=== PATIENT | female | born 1975 | race Caucasian/White ===

== ENCOUNTER 2017-03-28 20:16 | Observation (INO) | payer OTHER ==
[2017-03-28] MEDS ORDERED: Pepcid 20 MG VIAL IV ONE ×2 (20:26→20:29)
[2017-03-28] MEDS ORDERED: BENADRYL 50 MG/ML IV ONE (20:26)
[2017-03-28] MEDS ORDERED: solu-MEDROL 125 MG IV ONE (20:26)
[2017-03-28] MEDS ORDERED: Sodium Chloride 0.9% 1000 ML 1,000 ML ONE (20:29)
[2017-03-28] MEDS ORDERED: BENADRYL 50 MG/ML ONE (20:29)
[2017-03-28] MEDS ORDERED: solu-MEDROL 125 MG ONE (20:29)
[2017-03-28] MEDS ORDERED: Sodium Chloride 0.9% 1000 ML 1,000 ML IV SCH (20:30)
--- NOTE | 2017-03-28 20:33 | ERPHSYRPT ---
- History of Present Illness Time Seen by Provider: 03/28/17 20:22 Source: patient Patient Subjective Stated Complaint: PT REPORTS EATING A VICTOR MANUEL ET POTATO EDI 30 MIN AGO-STATES HER TONGUE BEGAN SWELLING-STATES SHE FEELS LIKE SHE IS HAVING TROUBLE BREATHING Triage Nursing Assessment: PT PINK WARM ET [id number] NONLABORED-SPEAKING IN COMPLETE SENTENCES-PT ANXIOUS UPON ARRIVAL-DENIES PAIN-DENIES ITCH Physician History: CC: tongue swelling Hx: 41 y/o patient of Dr Josue. 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 No V/D. No skin rash. No itching. She took her lisinopriol 2 hours prior. She has hx of HTN and DM. No trouble breathing. She had prior allergic reaction to ceclor. Has had no bites, stings, or other known exposures. She states not as had prior BTL. Symptoms moderate. No focal weakness, numbness, or tingling. No chest pain. Allergies/Adverse Reactions: cefaclor [From Ceclor] Allergy (Verified 03/28/17 20:24) Home Medications: Albuterol 2.5 mg/3 ml Neb [Proventil 2.5 mg/3 ml Neb] 2 puffs IH QID PRN 12/15/15 [History] Alprazolam 1 mg [Xanax 1 mg] 2 mg PO TID 12/15/15 [History] Budesonide/Formoterol Fumarate [Symbicort 160-4.5 Mcg Inhaler] 1 inh IH BID [History] Lisinopril 10 mg [Zestril 10 MG] 40 mg PO DAILY 12/15/15 [History] Metformin HCl 500 mg [Glucophage 500 MG] 500 mg PO BID 12/15/15 [History] Hx Tetanus, Diphtheria Vaccination/Date Given: No Hx Influenza Vaccination/Date Given: Yes Hx Pneumococcal Vaccination/Date Given: Yes Immunizations Up to Date: Yes - Review of Systems Constitutional: No Symptoms Eyes: No Symptoms Ears, Nose, & Throat: Mouth Swelling (tongue) Respiratory: No Cough, No Dyspnea Cardiac: No Chest Pain, No Palpitations, No Syncope Abdominal/Gastrointestinal: No Abdominal Pain, No Nausea, No Vomiting, No Diarrhea Skin: No Pruritis, No Rash, No Skin Lesions Neurological: No Focal Weakness, No Headache, No Parasthesia Psychological: Anxiety (worried about stroke) All Other Systems: Reviewed and Negative - Past Medical History Pertinent Past Medical History: Yes Neurological History: No Pertinent History ENT History: No Pertinent History Cardiac History: Hypertension Respiratory History: Bronchitis, COPD Endocrine Medical History: Diabetes Type II Musculoskeletal History: No Pertinent History GI Medical History: No Pertinent History History: No Pertinent History Psycho-Social History: Anxiety Female Reproductive Disorders: No Pertinent History - Past Surgical History Past Surgical History: Yes Neuro Surgical History: No Pertinent History Cardiac: No Pertinent History Respiratory: No Pertinent History Gastrointestinal: Cholecystectomy, Hernia Repair Genitourinary: No Pertinent History Musculoskeletal: No Pertinent History Female Surgical History: Tubal Ligation - Social History Smoking Status: Current every day smoker How long have you smoked: YRS Exposure to second hand smoke: Yes Drug Use: none Patient Lives Alone: No - Nursing Vital Signs Nursing Vital Signs: Initial Vital Signs Temperature 98.5 F Temperature Source Oral Pulse Rate 119 Respiratory Rate 18 Blood Pressure [Right Arm] 112/74 Pain Intensity 0 - Physical Exam General Appearance: alert Eye Exam: PERRL/EOMI Ears, Nose, Throat Exam: moist mucous membranes, other (tongue has mild to moderate diffuse angioedema. Airway intact. Mildly hoarse voice.) Neck Exam: normal inspection, non-tender, supple Respiratory Exam: normal breath sounds, lungs clear, No respiratory distress Cardiovascular Exam: regular rate/rhythm Gastrointestinal/Abdomen Exam: soft, No tenderness, No distention Back Exam: normal inspection Extremity Exam: normal inspection, normal range of motion Neurologic Exam: alert, oriented x 3, cooperative, glue maker II-XII nml as tested, sensation nml, No motor deficits Skin Exam: warm, dry, No rash SpO2 Interpretation: normal SpO2: 100 Oxygen Delivery: Room Air - Course Nursing assessment & vital signs reviewed: Yes EKG Interpreted by Me: RATE ([id number]), Sinus Rhythm, NORMAL AXIS, NORMAL INTERVALS ( QTc 462), NORMAL QRS, NORMAL ST-T Ordered Tests: Active Orders 24 hr Category Date Time Status EKG-ER Only STAT Care 03/28/17 20:26 Active IV Insertion STAT Care 03/28/17 20:26 Active NPO (ED) STAT Care 03/28/17 20:26 Active CBC W DIFF Stat Lab 03/28/17 20:35 Completed CMP Stat Lab 03/28/17 20:35 Completed HCG QUALITATIVE,SERUM Stat Lab 03/28/17 20:35 Completed Medication Summary Generic Name Dose Route Start Last Admin Trade Name Ginger PRN Reason Stop Dose Admin Sodium Chloride 1,000 mls @ 50 mls/hr 03/28/17 20:30 03/28/17 20:31 Sodium Chloride 0.9% 1000 Ml IV 04/27/17 20:29 50 mls/hr .Q20H ANN MARIE Administration Discontinued Medications Generic Name Dose Route Start Last Admin Trade Name Ginger PRN Reason Stop Dose Admin Diphenhydramine HCl 50 mg 03/28/17 20:26 03/28/17 20:31 Benadryl 50 Mg/Ml IV 03/28/17 20:27 50 mg STAT ONE Administration Diphenhydramine HCl Confirm 03/28/17 20:29 Benadryl 50 Mg/Ml Administered 03/28/17 20:30 Dose 50 mg .ROUTE .STK-MED ONE Famotidine 20 mg 03/28/17 20:26 03/28/17 20:31 Pepcid 20 Mg Vial IV 03/28/17 20:27 20 mg STAT ONE Administration Famotidine Confirm 03/28/17 20:29 Pepcid 20 Mg Vial Administered 03/28/17 20:30 Dose 20 mg IV .STK-MED ONE Methylprednisolone Sodium Succinate 125 mg 03/28/17 20:26 03/28/17 20:31 Solu-Medrol 125 Mg IV 03/28/17 20:27 125 mg STAT ONE Administration Methylprednisolone Sodium Succinate Confirm 03/28/17 20:29 Solu-Medrol 125 Mg Administered 03/28/17 20:30 Dose 125 mg .ROUTE .STK-MED ONE Lab/Rad Data: Laboratory Result Diagrams 03/28/17 20:35 03/28/17 20:35 Laboratory Results 03/28/17 03/28/17 03/28/17 Range/Units 20:35 20:35 20:35 WBC 6.6 (4.0-10.5) K/mm3 RBC 4.27 (4.1-5.4) M/mm3 Hgb 12.9 (12.0-16.0) gm/dl Hct 39.5 (35-47) % MCV 92.5 (78-100) fl MCH 30.2 (26-32) pg MCHC 32.7 (32-36) g/dl RDW 13.1 (11.5-14.0) % Plt Count 368 (150-450) K/mm3 MPV 9.3 (6-9.5) fl Gran % 62.2 (36.0-66.0) % Lymphocytes % 25.8 (24.0-44.0) % Monocytes % 8.2 (0.0-12.0) % Eosinophils % 2.9 (0.00-5.0) % Basophils % 0.9 (0.0-0.4) % Basophils # 0.06 (0-0.4) Sodium 139 (136-145) mEq/L Potassium 4.4 (3.5-5.1) mEq/L Chloride 103 (98-107) mEq/L Carbon Dioxide 25.3 (21-32) mEq/L Anion Gap 14.9 (5-15) MEQ/L BUN 30 H (9-20) mg/dL Creatinine 2.00 H (0.55-1.30) mg/dl Estimated GFR 29 ML/MIN Glucose 139 H (70-110) MG/DL Calcium 8.8 (8.5-10.1) mg/dL Total Bilirubin 0.30 (0.2-1.0) mg/dL AST 78 H (15-37) U/L ALT 113 H (12-78) U/L Alkaline Phosphatase 108 (46-116) U/L Serum Total Protein 7.4 (6.4-8.2) gm/dL Albumin 3.4 (3.4-5.0) g/dL Serum , Qual NEGATIVE (Negative) - Progress Progress Note: 03/28/17 20:33 Likely MATTHEW inhibitor induced angioedema as no other known exposures. 03/28/17 21:31 Angioedema appears to be improving. Airway intact. Still some tongue swelling. She takes metformin, diovan, lisinopril. She has new renal failure. Called Dr Miguel Josue and will place in observation. 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
[2017-03-28 20:38] LABS: BASOPHIL % 0.9 % (0.0-0.4); Eosinophil % 2.9 % (0.00-5.0); Granulocytes % 62.2 % (36.0-66.0); Lymphocytes % 25.8 % (24.0-44.0); Mean Cell Volume 92.5 fl (78-100); Mean Corpuscular Hemoglobin 30.2 pg (26-32); Mean Platelet Volume 9.3 fl (6-9.5); Monocytes % 8.2 % (0.0-12.0); Platelet Count 368 K/mm3 (150-450); Red Blood Count 4.27 M/mm3 (4.1-5.4); Red Cell Distribution Width 13.1 % (11.5-14.0); White Blood Count 6.6 K/mm3 (4.0-10.5)
[2017-03-28 20:53] LABS: ALBUMIN 3.4 g/dL (3.4-5.0); ANION GAP 14.9 MEQ/L (5-15); BILIRUBIN,TOTAL 0.3 mg/dL (0.2-1.0); Carbon Dioxide 25.3 mEq/L (21-32); Potassium 4.4 mEq/L (3.5-5.1); Total Protein 7.4 gm/dL (6.4-8.2)
[2017-03-28] MEDS ORDERED: NovoLOG Insulin SQ PRN (22:12)
[2017-03-28] MEDS ORDERED: Pepcid 20 MG VIAL IV SCH (22:12)
[2017-03-28] MEDS ORDERED: Nicoderm CQ 21 MG TOP SCH (22:30)
[2017-03-28] MEDS: Sodium Chloride 0.9% 1000 ML 1,000 ML IV SCH (22:56)
[2017-03-28] MEDS ORDERED: XANAX 1 MG PO SCH (23:21)
[2017-03-28] MEDS: solu-MEDROL 125 MG IV SCH (23:35)
[2017-03-28] MEDS: BENADRYL 50 MG/ML IV SCH (23:35)
[2017-03-29] MEDS: solu-MEDROL 125 MG IV SCH (02:38)
[2017-03-29] MEDS: BENADRYL 50 MG/ML IV SCH (02:39)
[2017-03-29 05:58] LABS: ANION GAP 12.8 MEQ/L (5-15); Carbon Dioxide 24.5 mEq/L (21-32); Potassium 4.7 mEq/L (3.5-5.1)
[2017-03-29 07:04] VITALS: BP 114/61; PULSE 68
[2017-03-29 07:10] VITALS: O2SAT 95
[2017-03-29] MEDS: Sodium Chloride 0.9% 1000 ML 1,000 ML IV SCH (07:12)
--- NOTE | 2017-03-29 08:22 | PCM.HP ---
History of Present Illness - Chief Complaint Chief Complaint: samir inhibitor induced angioedema Date: 03/29/17 History of Present Illness: is a 41 year old female. with diabetes she has this well controlled her last A1c was 5.4% but that was 1 year ago and she is only on metformin 500 bid she has lost a lot of weight. She had sudden swelling of her tongue and hoarseness in her voice yesterday. She denies any known inciting event she did not start any new medications, supplements, or foods recently. She believes she was drinking her normal amount yesterday with no change recently in this. This am she is feeling much better. She has no longer any swelling and her voice is improved. she is urinating well. She has been on the current blood pressure medications for some time she states. She was unsure when it was last changed. On chart review it appears she saw Cristal Fraga back in 02/2016 and had the losartan hctz started then but it doesn't appear she had any labs since that was started in addition to the lisinopril. Medications & Allergies Home Medications: Home Medication List Albuterol 2.5 mg/3 ml Neb [Proventil 2.5 mg/3 ml Neb] 2 puffs IH QID PRN 12/15/15 [History Confirmed 03/28/17] Alprazolam 1 mg [Xanax 1 mg] 2 mg PO TID 12/15/15 [History Confirmed 03/28] Budesonide/Formoterol Fumarate [Symbicort 160-4.5 Mcg Inhaler] 1 inh IH BID [History Confirmed 03/28/17] Alprazolam 1 mg [Xanax 1 mg] 2 mg PO TID #0 tablet 03/29/17 [Rx] Amlodipine Besylate 10 mg [Norvasc 10 MG] 10 mg PO DAILY #30 tablet 03/29/17 [Rx ] Allergies/Adverse Reactions: Allergies Allergy/AdvReac Type Severity Reaction Status Date / Time cefaclor [From [facility]] Allergy Verified 03/28/17 20:24 - Past Medical History Past Medical History: Yes Neurological History: No Pertinent History ENT History: No Pertinent History Cardiac History: Hypertension Respiratory History: Bronchitis, COPD Endocrine Medical History: Diabetes Type II Musculoskelatal History: No Pertinent History GI Medical History: No Pertinent History History: No Pertinent History Pyscho-Social History: Anxiety Reproductive Disorders: No Pertinent History - Female History Are you now?: No - Past Surgical History Past Surgical History: Yes Neuro Surgical History: No Pertinent History Cardiac History: No Pertinent History Respiratory Surgery: No Pertinent History GI Surgical History: Cholecystectomy, Hernia Repair Genitourinary Surgical Hx: No Pertinent History Musculskeletal Surgical Hx: No Pertinent History Female Surgical History: Tubal Ligation - Social History Smoking Status: Current some day smoker How long have you smoked: YRS Exposure to second hand smoke: Yes Alcohol: Rarely Drug Use: none - Physical Exam Vital Signs: Vital Signs - 24 hr Temp Pulse Resp BP Pulse Ox 03/29/17 07:10 95 03/29/17 07:03 98.4 F 68 18 114/61 94 L 03/29/17 04:00 97.8 F 67 16 104/62 97 03/28/17 23:08 97 03/28/17 22:28 98.5 F 119 H 18 112/74 100 03/28/17 21:32 100 03/28/17 21:21 119 H 18 112/74 98 03/28/17 20:21 98.5 F 101 H 22 124/68 100 General Appearance: no apparent distress, alert Neurologic Exam: alert, oriented x 3, cooperative, normal mood/affect, nml cerebellar function, nml station & gait, sensation nml, No motor deficits Eye Exam: PERRL/EOMI, eyes nml inspection Ears, Nose, Throat Exam: normal ENT inspection, TMs normal, pharynx normal, moist mucous membranes Neck Exam: normal inspection, non-tender, supple, full range of motion Respiratory Exam: normal breath sounds, lungs clear, No respiratory distress Cardiovascular Exam: regular rate/rhythm, normal heart sounds, normal peripheral pulses Gastrointestinal/Abdomen Exam: soft, normal bowel sounds, No tenderness, No mass Back Exam: normal inspection, normal range of motion, No CVA tenderness, No vertebral tenderness Extremity Exam: normal inspection, normal range of motion, pelvis stable Skin Exam: normal color, warm, dry, No rash Lymphatic Exam: No adenopathy Results - Labs Lab/Micro Results: Accuchecks Date 03/29/17 Time 07:30 Accucheck Value: 193 Lab Results-Last 24 Hours 03/29/17 Range/Units 05:15 Sodium 138 (136-145) mEq/L Potassium 4.7 (3.5-5.1) mEq/L Chloride 105 (98-107) mEq/L Carbon Dioxide 24.5 (21-32) mEq/L Anion Gap 12.8 (5-15) MEQ/L BUN 25 H (9-20) mg/dL Creatinine 1.71 H (0.55-1.30) mg/dl Estimated GFR 35 ML/MIN Glucose 193 H (70-110) MG/DL Calcium 8.5 (8.5-10.1) mg/dL Accuchecks Date 03/29/17 Time 07:30 Accucheck Value: 193 Assessment/Plan (1) 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 add amlopine for her htn and repeat bmp in 1 week drink plenty of water and f/u next week as well stay off the metformin until repeat labs. Discussed likely will have higher blood sugar the next few days given the steroids she was given in ED and last night on floor IV (3) Hypertension Status: Acute Code(s): I10 - ESSENTIAL (PRIMARY) HYPERTENSION (4) Type 2 diabetes mellitus Status: Acute
--- NOTE | 2017-03-29 08:22 | PCM.DCORD ---
- Discharge Discharge Date: 03/29/17 Disposition: Home, Self-Care Condition: Stable Prescriptions: New Amlodipine Besylate 10 mg [Norvasc 10 MG] 10 mg PO DAILY #30 tablet Alprazolam 1 mg [Xanax 1 mg] 2 mg PO TID #0 tablet Continue Albuterol 2.5 mg/3 ml Neb [Proventil 2.5 mg/3 ml Neb] 2 puffs IH QID PRN PRN Reason: Shortness Of Breath Budesonide/Formoterol Fumarate [Symbicort 160-4.5 Mcg Inhaler] 1 inh IH BID Alprazolam 1 mg [Xanax 1 mg] 2 mg PO TID Discontinued Metformin HCl 500 mg [Glucophage 500 MG] 500 mg PO BID Lisinopril 10 mg [Zestril 10 MG] 40 mg PO DAILY Valsartan/Hydrochlorothiazide [Diovan Hct 160-12.5 mg Tab] 1 each PO Additional Instructions: have blood test (BMP) next Tuesday Follow up with: DONNELL JOSUE [Primary Care Provider] -
[2017-03-29] MEDS ORDERED: solu-MEDROL 125 MG IV SCH (09:00)
[2017-03-29] MEDS ORDERED: BENADRYL 50 MG/ML IV SCH (09:00)
[2017-03-29] MEDS ORDERED: XANAX 1 MG PO PRN (09:15)
[2017-03-29] MEDS ORDERED: PNEUMOVAX 23 IM ONE (10:00)
== END 2017-03-29 09:15 | disposition home or self-care (01) ==
LOC: ED 20:16 → MED SURG 22:11
PROVIDERS: ADMIT Family Medicine; ATTEND Family Medicine
DX: T78.3XXA Angioneurotic edema, initial encounter (principal); T46.4X5A Adverse effect of angiotensin-converting-enzyme inhibitors, initial encounter; N17.9 Acute kidney failure, unspecified; I10 Essential (primary) hypertension; E11.9 Type 2 diabetes mellitus without complications; Z79.4 Long term (current) use of insulin; J44.9 Chronic obstructive pulmonary disease, unspecified; F41.9 Anxiety disorder, unspecified; Z79.899 Other long term (current) drug therapy; Z72.0 Tobacco use
CPT/HCPCS: 36000; 36415; 80048; 80053; 84703; 85025; 90732; 93005; 94762; 96360; 96361; 96374; 96375; 99285; G0378; J1200; J2930; A9270-GY

== ENCOUNTER 2020-05-01 03:09 | Emergency (ER) | payer OTHER ==
--- NOTE | 2020-05-01 03:33 | ERPHSYRPT ---
- History of Present Illness Time Seen by Provider: 05/01/20 03:15 Source: patient ([id number]) Physician History: Patient is a 44-year-old female with a history of heroin use presents to our ED for evaluation status post heroin overdose. Patient states she injected heroin into her right arm. Patient has history of heroin use. Patient quit however relapsed recently. Patient was with a friend at a known drug house. Patient apparently called her daughter for a ride home. Once daughter arrived to ~designated location patient was found unresponsive. 911 was dispatched. Patient was treated with Narcan and immediately awoke. Patient last used heroin approximately 1 hour prior to arrival. Narcan was administered at approximately 2:30 AM. Patient is alert and oriented x4. She denies pain. No nausea or vomiting. No diaphoresis. Patient requesting discharge. However patient is willing to stay for observation. Patient voices no other complaints at this time. No chest pain shortness of breath. No nausea or vomiting. No diaphoresis. No neck pain. Cervical spine cleared clinically. Timing/Duration: today Severity: moderate Modifying Factors: Improves With: nothing Associated Symptoms: denies symptoms, No nausea, No abdominal pain, No shortness of breath, No diaphoresis, No cough, No fever, No headaches, No loss of appetite Allergies/Adverse Reactions: cefaclor [From Ceclor] Allergy (Verified 05/01/20 03:28) valsartan [From [facility]] Allergy (Verified 05/01/20 03:28) Anaphylactic Reaction Home Medications: Albuterol 2.5 mg/3 ml Neb [Proventil 2.5 mg/3 ml Neb] 2 puffs IH QID PRN PRN 12/15/15 [History] Budesonide/Formoterol Fumarate [Symbicort 160-4.5 Mcg Inhaler] 1 inh IH DAILY 12/15/15 [History] Alprazolam 1 mg [Xanax 1 mg] 1 mg PO TID 05/01/20 [History] Furosemide [Lasix] 20 mg PO DAILY 05/01/20 [History] Losartan Potassium 25 mg PO DAILY 05/01/20 [History] Meloxicam 15 mg PO DAILY 05/01/20 [History] Potassium Chloride 10 meq PO DAILY 05/01/20 [History] Hx Tetanus, Diphtheria Vaccination/Date Given: No Hx Influenza Vaccination/Date Given: Yes Hx Pneumococcal Vaccination/Date Given: Yes - Review of Systems Constitutional: No Symptoms, No Fever, No Chills Eyes: No Symptoms Ears, Nose, & Throat: No Symptoms Respiratory: No Symptoms, No Cough, No Dyspnea Cardiac: No Symptoms, No Chest Pain, No Edema, No Syncope Abdominal/Gastrointestinal: No Symptoms, No Abdominal Pain, No Nausea, No Vomiting, No Diarrhea Genitourinary Symptoms: No Symptoms, No Dysuria Musculoskeletal: No Symptoms, No Back Pain, No Neck Pain Skin: No Symptoms, No Rash Neurological: No Symptoms, No Dizziness, No Focal Weakness, No Sensory Changes Psychological: No Symptoms Endocrine: No Symptoms Hematologic/Lymphatic: No Symptoms Immunological/Allergic: No Symptoms All Other Systems: Reviewed and Negative - Past Medical History Pertinent Past Medical History: Yes Neurological History: No Pertinent History ENT History: No Pertinent History Cardiac History: Hypertension Respiratory History: Bronchitis, COPD Endocrine Medical History: Diabetes Type II Musculoskeletal History: No Pertinent History GI Medical History: No Pertinent History History: No Pertinent History Psycho-Social History: Anxiety Female Reproductive Disorders: No Pertinent History - Past Surgical History Past Surgical History: Yes Neuro Surgical History: No Pertinent History Cardiac: No Pertinent History Respiratory: No Pertinent History Gastrointestinal: Cholecystectomy, Hernia Repair Genitourinary: No Pertinent History Musculoskeletal: No Pertinent History Female Surgical History: Tubal Ligation - Social History Smoking Status: Current some day smoker How long have you smoked: YRS Exposure to second hand smoke: Yes Drug Use: none Patient Lives Alone: No - Nursing Vital Signs Nursing Vital Signs: Initial Vital Signs Temperature 98.4 F 05/01/20 03:13 Pulse Rate 79 05/01/20 03:13 Respiratory Rate 18 05/01/20 03:13 Blood Pressure 139/111 05/01/20 03:13 O2 Sat by Pulse Oximetry 99 05/01/20 03:13 Pain Scale Pain Intensity 0 - Physical Exam General Appearance: no apparent distress, alert Eye Exam: PERRL/EOMI, eyes nml inspection, No scleral icterus Ears, Nose, Throat Exam: normal ENT inspection, TMs normal, pharynx normal, moist mucous membranes Neck Exam: normal inspection, non-tender, supple, full range of motion Respiratory Exam: normal breath sounds, lungs clear, No chest tenderness, No respiratory distress Cardiovascular Exam: regular rate/rhythm, normal heart sounds, normal peripheral pulses Gastrointestinal/Abdomen Exam: soft, normal bowel sounds, No tenderness, No mass Back Exam: normal inspection, normal range of motion, No CVA tenderness, No anitra tebral tenderness Extremity Exam: normal inspection, normal range of motion, pelvis stable, other (Track osorio right arm along right antecubital area.) Neurologic Exam: alert, oriented x 3, cooperative, normal mood/affect, nml cerebellar function, nml station & gait, sensation nml, No motor deficits, No sensory deficit, No disoriented, No confusion, No agitation, No uncooperative, No depressed mood/affect, No abnormal gait, No abnormal cerebellar tests Skin Exam: normal color, warm, dry, No rash Lymphatic Exam: No adenopathy SpO2 Interpretation: normal SpO2: 99 O2 Delivery: Room Air - Course Nursing assessment & vital signs reviewed: Yes EKG Interpreted by Me: RATE (71), Sinus Rhythm, NORMAL AXIS, NORMAL INTERVALS Ordered Tests: Active Orders 24 hr Category Date Time Status Sql Ssrs Ssis Developer STAT Care 05/01/20 03:28 Active EKG-ER Only STAT Care 05/01/20 03:27 Active IV Insertion STAT Care 05/01/20 03:27 Active Pulse Oximetry (ED) STAT Care 05/01/20 03:27 Active CBC W DIFF Stat Lab 05/01/20 03:45 Completed CMP Stat Lab 05/01/20 03:45 Received TROPONIN Q3H Lab 05/01/20 03:45 Received TROPONIN Q3H Lab 05/01/20 06:30 Ordered TROPONIN Q3H Lab 05/01/20 09:30 Ordered TROPONIN Q3H Lab 05/01/20 12:30 Ordered TROPONIN Q3H Lab 05/01/20 15:30 Ordered Lab/Rad Data: Laboratory Result Diagrams 05/01/20 03:45 Laboratory Results 05/01/20 Range/Units 03:45 WBC 10.6 H (4.0-10.5) K/mm3 RBC 4.25 (4.1-5.4) M/mm3 Hgb 12.9 (12.0-16.0) gm/dl Hct 40.1 (35-47) % MCV 94.4 (78-100) fl MCH 30.4 (26-32) pg MCHC 32.2 (32-36) g/dl RDW 13.4 (11.5-14.0) % Plt Count 271 (150-450) K/mm3 MPV 9.8 (7.5-11.0) fl Gran % 77.8 H (36.0-66.0) % Eos # (Auto) 0.12 (0-0.5) Absolute Lymphs (auto) 1.50 (1.0-4.6) Absolute Monos (auto) 0.65 (0.0-1.3) Lymphocytes % 14.2 L (24.0-44.0) % Monocytes % 6.2 (0.0-12.0) % Eosinophils % 1.1 (0.00-5.0) % Basophils % 0.7 (0.0-0.4) % Absolute Granulocytes 8.22 H (1.4-6.9) Basophils # 0.07 (0-0.4) - Progress Progress: improved Progress Note: 05/01/20 04:25 Patient reassessed. She has no complaints. No chest pain or shortness of breath. Vitals within normal limits. Patient requesting discharge. However lab work-up is not completed. We cannot keep patient against her wish. Patient will be discharged AMA. Patient is alert and oriented x4. Patient is appropriate to make informed and independent medical decisions. An AMA form was completed. Patient understand that leaving AMA could result in increased risk morbidity, mortality, short long-term disability including . In spite of her risks patient is going to leave AMA. Patient understands she may return to our ED or to her nearest ED at any point if she changes her mind and agrees to further monitoring work-up and possible admission. Counseled pt/family regarding: lab results, diagnosis, need for follow-up - Departure Departure Disposition: AMA Clinical Impression: Heroin abuse Condition: Stable Critical Care Time: No Additional Instructions: Discharge/Care Plan XIOMARAHIMARLEN DAY was seen on 05/01/20 in the Emergency Room. The patient was counseled regarding Diagnosis,Lab results, Imaging studies, need for follow up and when to return to the Emergency Room. Prescriptions given: Discharge Note I have spoken with the patient and/or caregivers. I have explained the patient's condition, diagnosis and treatment plan based on the information available to me at this time. I have answered the patient's and/or caregiver's questions and addressed any concerns. The patient and/or caregivers have as good understanding of the patient's diagnosis, condition and treatment plan as can be expected at this point. The vital signs have been stable. The patient's condition is stable and appropriate for discharge from the emergency department. The patient will pursue further outpatient evaluation with the primary care physician or other designated or consulting physician as outlined in the discharge instructions. The patient and/or caregivers are agreeable to this plan of care and follow-up instructions have been explained in detail. The patient and/or caregivers have received these instruction. The patient/and or caregivers are aware that any significant change in condition or worsening of symptoms should prompt an immediate return to this or the closest emergency department or call 911.
[2020-05-01 04:15] LABS: Absolute Neutrophil Ct (ANC) 8.22 (1.4-6.9); BASOPHIL % 0.7 % (0.0-0.4); Basophil (Absolute #) 0.07 (0-0.4); Eosinophil % 1.1 % (0.00-5.0); Eosinophil (Absolute #) 0.12 (0-0.5); Hematocrit 40.1 % (35-47); Hemoglobin 12.9 gm/dl (12.0-16.0); Lymphocytes % 14.2 % (24.0-44.0); Mean Cell Volume 94.4 fl (78-100); Mean Corpuscular Hemoglobin 30.4 pg (26-32); Mean Corpuscular Hgb Concent. 32.2 g/dl (32-36); Mean Platelet Volume 9.8 fl (7.5-11.0); Monocyte (Absolute #) 0.65 (0.0-1.3); Monocytes % 6.2 % (0.0-12.0); Neutrophil % 77.8 % (36.0-66.0); Platelet Count 271 K/mm3 (150-450); Red Blood Count 4.25 M/mm3 (4.1-5.4); Red Cell Distribution Width 13.4 % (11.5-14.0); White Blood Count 10.6 K/mm3 (4.0-10.5)
[2020-05-01 04:26] VITALS: BP 140/111; PULSE 83
[2020-05-01 04:26] LABS: ALBUMIN 4.4 g/dL (3.5-5.0); ANION GAP 13.1 MEQ/L (5-15); BILIRUBIN,TOTAL 0.7 mg/dL (0.2-1.3); Calcium 9.5 mg/dL (8.4-10.2); Creatinine 1 1.2 mg/dL (0.52-1.04); Potassium 3.9 mmol/L (3.5-5.1); Total Protein 7.8 g/dL (6.3-8.2)
[2020-05-01 04:28] VITALS: O2SAT 99
[2020-05-01 05:35] LABS: Slide Review 1 YES
== END 2020-05-01 04:26 | disposition home or self-care (01) ==
LOC: ED 03:09
DX: F11.10 Opioid abuse, uncomplicated (principal); J44.9 Chronic obstructive pulmonary disease, unspecified; E11.9 Type 2 diabetes mellitus without complications; F41.9 Anxiety disorder, unspecified
CPT/HCPCS: 36415; 80053; 82962; 84484; 85025; 93005; 93041; 94760; 99284